=== PATIENT | female | born 2000 | race Caucasian/White ===

== ENCOUNTER 2022-12-03 10:52 | Outpatient (REF) | payer OTHER, SELFPAY ==
--- NOTE | ~2022-12-03 | MM_ITS ---
EXAMINATION: BONE DENSITOMETRY CLINICAL INDICATION: Stress fracture, unspecified femur, sequela. COMPARISON: This is the patient's baseline examination. TECHNIQUE: Using a Seriously DXA System (software version: 13.1) manufactured by [employer], dual-energy x-ray absorptiometry was performed of the lumbar spine and left hip. The images are of good technical quality. Based on ISCD (International Society for Clinical Densitometry) standards of reporting, Z-scores instead of T-scores are reported in this premenopausal woman. Summary results are attached. FINDINGS: AP SPINE L1-L4: BMD 1.197 g/cm2, T-score 0.1, Z-score 0.1, Z-score within expected range for age. LEFT FEMUR, NECK: BMD 1.275 g/cm2, T-score 1.7, Z-score 1.6, Z-score within expected range for age. LEFT FEMUR, TOTAL: BMD 1.239 g/cm2, T-score 1.8, Z-score 1.8, Z-score within expected range for age. IDENTIFIED RISK FACTORS: History of fracture (adult). HISTORY OF FRACTURE: Femur. MEDICATIONS: Multivitamin, vitamin D, ERT/SERMS. MM/XR DEXA axial skeleton IMPRESSION: 1. DIAGNOSIS: Based on the lowest Z-score value of 0.1 in the lumbar spine, the patient's bone density is within the expected range for age. 2. 10-YEAR FRACTURE RISK PREDICTION, FRAX: Not performed in this patient outside the age range of 40-90 years. 3. Treatment Recommendations: NOF guidelines recommend consideration for treatment in postmenopausal women and men age 50 and older presenting with the following: -A hip or vertebral (clinical or morphometric) fracture. -T-score less than or equal to -2.5 at the femoral neck or spine after appropriate evaluation to exclude secondary causes. -Low bone mass at the hip or spine and a 10-year fracture probability by FRAX of greater than or equal to 3% for hip fracture or greater than or equal to 20% for major osteoporotic fracture based on the [place] adapted WHO algorithm. 4. Other Recommendations: All treatment decisions require clinical judgment and consideration of individual patient factors, including patient preferences, comorbidities, previous drug use, risk factors not captured in the FRAX model (e.g. frailty, falls, vitamin D deficiency, increased bone turnover, interval significant decline in bone density) and possible under or overestimation of fracture risk by FRAX. FUTURE SCAN RECOMMENDATION: People with diagnosed cases of osteoporosis or at high risk for fracture should have regular bone mineral density tests. For patients eligible for Medicare, routine testing is allowed once every 2 years. The testing frequency can be increased to one year for patients who have rapidly progressing disease, those who are receiving or discontinuing medical therapy to restore bone mass, or have additional risk factors.
== END 2022-12-03 10:53 | disposition home or self-care (01) ==
LOC: HO.MAMMO 10:52
PROVIDERS: Visit Provider Family Medicine Sports Medicine
DX: Z13.820 Encounter for screening for osteoporosis (principal); M84.353 Stress fracture, unspecified femur
CPT/HCPCS: 77080

== ENCOUNTER 2022-12-15 15:10 | Outpatient (REF) | payer OTHER, SELFPAY ==
--- NOTE | ~2022-12-15 | MR_ITS ---
EXAMINATION: MR LUMBAR SPINE WITHOUT CONTRAST CLINICAL INFORMATION: Low back pain. COMPARISON: None available. TECHNIQUE: MRI of the lumbar spine was obtained using routine sequences without contrast. FINDINGS: Small endplate Schmorl's nodes and very mild disc bulges are visible at the L1-L2 and L2-L3 levels, also evident at the T11-T12 level. There is no central canal stenosis or foraminal narrowing. At the L5-S1 level, there is mild disc degeneration with a shallow, broad-based central disc protrusion. Underlying annular tear noted at this level. Aside from mild thecal sac compression, no nerve root impingement is seen. There is mild facet arthropathy as well at this level without central canal stenosis. The remaining discs are well-hydrated and normal in appearance. No marrow or soft tissue edema identified. The distal cord, conus tip, and cauda equina nerve roots are normal. There is a very mild leftward curvature of the lumbar spine. The paraspinal soft tissues are normal. MR/MR lumbar spine wo con IMPRESSION: 1. Mild disc degeneration and shallow central disc protrusion with an underlying annular tear at the L5-S1 level. Mild facet arthropathy. No central canal stenosis or foraminal narrowing. 2. Mild disc degeneration with endplate Schmorl's nodes at the T11-T12, L1-L2, and L2-L3 levels. Mild leftward lumbar spinal curvature.
== END 2022-12-15 15:11 | disposition home or self-care (01) ==
LOC: HO.MRI 15:10
PROVIDERS: Visit Provider Family Medicine Sports Medicine
DX: M54.50 Low back pain, unspecified (principal)
CPT/HCPCS: 72148

== ENCOUNTER 2023-03-03 18:05 | Outpatient (REF) | payer OTHER, SELFPAY | END 2023-03-03 18:06 | disposition home or self-care (01) | LOC: HO.MRI 18:05 | PROVIDERS: Visit Provider Family Medicine Sports Medicine | DX: Z13.89 Encounter for screening for other disorder (principal) ==

== ENCOUNTER 2023-03-15 19:38 | Outpatient (REF) | payer OTHER, SELFPAY ==
--- NOTE | ~2023-03-15 | MR_ITS ---
EXAMINATION: MR HIP WITHOUT CONTRAST, RIGHT MR FEMUR WITHOUT CONTRAST, RIGHT CLINICAL INFORMATION: Leg pain. Femoral stress fracture in May 2022. Increased pain x8 weeks. COMPARISON: None available. TECHNIQUE: MR images of the right hip and the right femur were obtained using routine sequences on a 1.5 Lori magnet. FINDINGS: RIGHT HIP: Labrum and capsule: No appreciable labral tears. Joint capsule is unremarkable. Bones and articular cartilage: An ill-defined focus of increased T2 signal is present within the medullary canal of the proximal femoral diaphysis, most notable anteromedially as seen on image 13 of series 22. Overlying cortex is normal in signal intensity. No periostitis. Marrow signal in the right hip joints, proximal femur, and imaged osseous pelvis is otherwise unremarkable. No fractures. No focal lesions. Articular cartilage of the right hip joint appears well-preserved without subchondral edema. No avascular necrosis. Acetabular and femoral morphology appear normal. Pubic symphysis is unremarkable. Imaged portions of the SI joints are normal. Muscles and tendons: Tendons are normal in signal intensity without tears or tendinosis. Musculature is also normal in signal intensity without edema signal, atrophy, or fatty replacement. No abnormalities at the adductor aponeurotic attachments on the pubic symphysis. Joint fluid and bursae: No effusions or bursitis. Intrapelvic soft tissues: No acute findings. No adenopathy. Superficial soft tissues. No significant subcutaneous edema or fluid collections. No superficial adenopathy. RIGHT FEMUR: The area of subtle edema signal in the proximal femoral shaft is better seen on the dedicated hip images. The remainder of the femur is normal in signal intensity without marrow edema or periostitis. No osseous lesions or avascular necrosis. Cortices are intact and normal in signal intensity. Imaged portion of the right knee is unremarkable. No significant right knee joint effusion. Musculature is normal in signal intensity without fatty atrophy or edema. No fasciitis. Of incidental note, there is an accessory slip of the medial head of the gastrocnemius which extends laterally around the popliteal neurovascular structures. Surrounding soft tissues are normal in signal intensity on these images. No appreciable vascular abnormalities on this unenhanced study. No adenopathy. Superficial soft tissues are unremarkable. MR/MR femur RT wo con IMPRESSION: 1. Subtle focus of edema-like signal within the medullary canal of the proximal femoral shaft may correspond to the remnant of a mild stress reaction or to normal variation in metabolic marrow distribution. No periostitis, cortical abnormalities, or other findings of a stress fracture. Otherwise, no acute abnormalities are identified in the right hip and femur. 2. Normal muscles and tendons in the right hip and thigh. No muscle atrophy or edema signal. 3. Incidental note of an accessory lateral slip of the medial head of the gastrocnemius muscle around the popliteal neurovascular structures. This is typically asymptomatic and of unlikely clinical significance, though does predispose to popliteal artery entrapment syndrome.
== END 2023-03-15 19:39 | disposition home or self-care (01) ==
LOC: HO.MRI 19:38
PROVIDERS: Visit Provider Family Medicine Sports Medicine
DX: M25.551 Pain in right hip (principal)
CPT/HCPCS: 73718; 73721